=== PATIENT | female | born 1995 | race Hispanic/Latino ===

== ENCOUNTER 2017-10-08 16:15 | Inpatient (IN) | payer OTHER ==
[2017-10-08 17:57] LABS: HEMATOCRIT 39.9 % (36.0-47.0); HEMOGLOBIN 12.7 g/dl (12.0-15.5); MEAN CORPUSCULAR HEMOGLOBIN 25.8 pg (27.0-33.0); MEAN CORPUSCULAR HGB CONC 31.8 g/dl (32.0-36.5); MEAN CORPUSCULAR VOLUME 81.1 fl (80.0-96.0); PLATELET COUNT, AUTOMATED 275 10^3/uL (150-450); RED BLOOD COUNT 4.92 10^6/uL (4.00-5.40); RED CELL DISTRIBUTION WIDTH 14.3 % (11.5-14.5); WHITE BLOOD COUNT 5.9 10^3/uL (4.0-10.0)
[2017-10-08 18:14] LABS: CONTROL LINE HCG INT CTR LINE PRESENT; HCG, SERUM QUALITATIVE NEGATIVE (NEGATIVE)
[2017-10-08 18:17] LABS: AMPHETAMINES LEVEL URINE NEGATIVE (NEGATIVE); BARBITURATES URINE NEGATIVE (NEGATIVE); BENZODIAZEPINES URINE NEGATIVE (NEGATIVE); CANNABINOIDS URINE NEGATIVE (NEGATIVE); COCAINE METABOLITE URINE NEGATIVE (NEGATIVE); METHADONE URINE NEGATIVE (NEGATIVE); OPIATES URINE NEGATIVE (NEGATIVE); PHENCYCLIDINE URINE NEGATIVE (NEGATIVE)
[2017-10-08 18:29] LABS: ACETAMINOPHEN LEVEL < 2.0 UG/ML (10.0-30.0); ALBUMIN 3.8 GM/DL (3.2-5.2); ALBUMIN/GLOBULIN RATIO 0.95 (1.00-1.93); ALKALINE PHOSPHATASE 61 U/L (45-117); ALT/SGPT 33 U/L (12-78); ANION GAP 6 MEQ/L (8-16); AST/SGOT 26 U/L (7-37); BILIRUBIN,DIRECT 0.1 MG/DL (0.0-0.2); BILIRUBIN,TOTAL 0.4 MG/DL (0.2-1.0); BLOOD UREA NITROGEN 12 MG/DL (7-18); CARBON DIOXIDE LEVEL 26 MEQ/L (21-32); CHLORIDE LEVEL 106 MEQ/L (98-107); CREATININE FOR GFR 0.75 MG/DL (0.55-1.30); ETHYL ALCOHOL (ETHANOL) 0.004 % (0.000-0.010); GLOMERULAR FILTRATION RATE > 60.0 (>60); GLUCOSE, FASTING 82 MG/DL (70-100); POTASSIUM SERUM 4.1 MEQ/L (3.5-5.1); SALICYLATE LEVEL < 1.7 MG/DL (5.0-30.0); SODIUM LEVEL 138 MEQ/L (136-145); THYROID STIMULATING HORMONE 0.745 uIU/ML (0.358-3.740); TOTAL PROTEIN 7.8 GM/DL (6.4-8.2)
[2017-10-08] MEDS ORDERED: MAALOX 30 ML SUSP *UDC PO (19:00)
[2017-10-08] MEDS ORDERED: MOM 30ML SUSPENSION UDC PO (19:00)
[2017-10-08] MEDS ORDERED: hydrOXYzine 50 MG TAB PO (19:00)
[2017-10-09] MEDS: CitaloPRAM (CeleXA) 20 MG TAB PO (09:16)
[2017-10-09] MEDS: ACETAMINOPHEN TAB 650MG DOSE (2X325MG) PO (15:28)
[2017-10-09] MEDS: traZODone 50 MG TAB PO (21:29)
[2017-10-10] MEDS: CitaloPRAM (CeleXA) 20 MG TAB PO (09:20)
[2017-10-10] MEDS: traZODone 50 MG TAB PO (22:16)
[2017-10-11] MEDS: CitaloPRAM (CeleXA) 20 MG TAB PO (09:06)
[2017-10-11] MEDS: traZODone 50 MG TAB PO (22:05)
[2017-10-11] MEDS: IBUPROFEN 400 MG TAB PO (22:06)
[2017-10-12] MEDS: CitaloPRAM (CeleXA) 20 MG TAB PO (08:40)
[2017-10-12] MEDS: IBUPROFEN 400 MG TAB PO (08:40)
== END 2017-10-12 11:57 | disposition home or self-care (01) | DRG 885 ==
LOC: M ED 16:15 → M ED INP 18:46 → M PSY 19:15
DX: F33.2 Major depressive disorder, recurrent severe without psychotic features (principal); F43.10 Post-traumatic stress disorder, unspecified; F34.1 Dysthymic disorder